=== PATIENT | male | born 1995 | race Caucasian/White ===

== ENCOUNTER 2017-07-03 23:07 | Emergency (ER) | payer SELFPAY ==
[~2017-07-03] VITALS: Ht 177.8 cm; Wt 97.7 kg
[2017-07-03 23:19] VITALS: TEMP 36.9; Ht 177.8 cm; Wt 97.7 kg
[2017-07-03] MEDS ORDERED: RANITIDINE HCL 150 MG TAB PO ONE (23:45)
[2017-07-04 00:31] VITALS: BP 125/73
[2017-07-04 00:34] VITALS: PULSE 79; O2SAT 98
[2017-07-04] MEDS ORDERED: PRED50TA PO (00:38)
--- NOTE | 2017-07-04 02:14 | EMERGENCY ROOM VISIT NOTE ---
History Report prepared by Luisa: Ines Rodriguez Under the Supervision of: Dr. Curly Deluna M.D. First contact with patient: 23:24 Chief Complaint: ALLERGIC REACTION Stated Complaint: SWOLLEN LIPS, CLOGGED SINUSES Nursing Triage Summary: "I just started using a carmex lip balm for the first time last night. I put it on multiple times over night and throughout the day today. Every time I put it on, it made my lips tingle. My nose has been stuffy for a week now. Around 1400 , I noticed that my lips were swollen." Patient denies any trouble breathing. Patient reports that his nose is swollen, left greater than right. Benadryl taken at 1500. History of Present Illness The patient is a 22 year old male who presents to the Emergency Room with complaints of a persistent allergic reaction secondary to applying Carmex to his lips one day ago. The patient states that he has been treating a sinus infection for the past couple of days, noting his lips have been dry and therefore has been applying Carmex to them. He reports that one night ago he kept waking up about every 45 minutes and applied the lip balm 4-5 times. This morning when the patient woke up, he noticed that his lips have been swollen, tingling, and have some "crusty" discharge. The patient states that his top lip has been more swollen than his bottom lip. He notes that he took Benadryl at 1500 today, noting it did not help relieve his symptoms but holding ice on his lips did help reduce the swelling for a little bit. He denies any tongue swelling or abnormalities to his voice. The patient reports that he has allergic reactions to hair dye, cats, and dogs. Pt denies LOC, headache, fevers, chills, diaphoresis, visual changes, neck pain , chest pain, breathing difficulties, nausea, vomiting, abdominal pain, back pain, weakness, lymphadenopathy, rash, or other complaints. Source of History: patient Onset: one day ago Position: lip (both) Quality: other (lip swelling) Timing: other (persistent) Review of Systems See HPI for pertinent positives and negatives. A total of ten systems were reviewed and were otherwise negative. Past Medical & Surgical Medical Problems: (1) Bronchitis (2) Epididymitis (3) Fever Family History Cancer Diabetes mellitus Heart disease Social History Smoking Status: Never Smoker Smokeless Tobacco Use: No Alcohol Use: none Drug Use: none Marital Status: single Housing Status: lives with family Occupation Status: student Current/Historical Medications Scheduled Prednisone (Prednisone), 50 MG PO DAILY Allergies Coded Allergies: No Known Allergies (Unverified , 07/03/17) Physical Exam Vital Signs Date Time Temp Pulse Resp B/P (MAP) Pulse Ox O2 Delivery O2 Flow Rate FiO2 07/04/17 00:34 79 15 98 07/04/17 00:31 125/73 07/04/17 00:19 77 16 98 07/04/17 00:15 75 07/04/17 00:04 70 17 97 07/04/17 00:01 135/72 07/03/17 23:49 80 21 97 07/03/17 23:34 93 13 97 07/03/17 23:29 82 18 143/78 98 07/03/17 23:19 36.9 84 20 146/104 96 Room Air 07/03/17 23:19 96 Room Air Physical Exam GENERAL: Awake, alert, well-appearing, in no distress HENT: Some swelling of left nasal mucosa and also both lips, some minor crusting noticed on inner aspect of upper and lower lips, but no blistering or open wounds. Normocephalic, atraumatic. Oropharynx unremarkable. EYES: Normal conjunctiva. Sclera non-icteric. NECK: Supple. No nuchal rigidity. FROM. No masses. RESPIRATORY: Clear to auscultation. No wheezes. CARDIAC: Normal rate. Normal rhythm. No murmurs. No rubs. Extremities warm and well perfused. Pulses equal. No JVD. GI: Soft, non-distended. No tenderness to palpation. No rebound or guarding. No masses. RECTAL: Deferred. MUSCULOSKELETAL: Atraumatic. Chest examination reveals no tenderness. The back is symmetrical on inspection without obvious abnormality. There is no CVA tenderness to palpation. No joint edema. LOWER EXTREMITIES: Calves are equal size bilaterally and non-tender. No edema. No discoloration. NEURO: Normal sensorium. No sensory or motor deficits noted. SKIN: No rash or jaundice noted. Medical Decision & Procedures Medications Administered Medications (Trade) Dose Ordered Sig/Ivon Route Start Time Stop Time Status Last Admin Dose Admin Prednisone (PredniSONE TAB) 60 mg NOW STAT PO 2/18/18 23:34 07/03/17 23:36 DC 07/03/17 23:48 60 MG Diphenhydramine HCl (Benadryl Cap) 50 mg NOW STAT PO 07/03/17 23:34 07/03/17 23:36 DC 07/03/17 23:48 50 MG Ranitidine HCl (zANTac TAB) 150 mg NOW ONCE PO 07/03/17 23:45 07/03/17 23:46 DC 07/03/17 23:48 150 MG ED Course 2325: The patient was evaluated in room B12. A complete history and physical exam was performed. 2334: Ordered Benadryl Cap 50mg PO and Prednisone 60mg PO. 2345: Ordered Ranitidine HCL 150mg PO. 0033: I reevaluated the patient, who was feeling significantly better. Discussed results and discharge instructions: He verbalized understanding and agreement. The patient is ready for discharge. Medical Decision Triage Nursing notes reviewed and agree them. The patient's history was concerning for possible allergic reaction. Differential diagnosis: Etiologies such as allergic reaction, anaphylaxis, urticaria, Lauren-Luis Eduardo syndrome, toxic epidermal necrolysis, erythema multiforme, cellulitis, as well as others were entertained. Physical examination: As above. ER treatment provided: Benadryl 50 mg PO Zantac 150 mg PO Prednisone 60mg PO On reassessment the patient was stable. Diagnostic interpretation by me: Deferred It appears the patient had an allergic reaction to the lip balm. The patient will refrain from using any of this in the future. Precautions discussed. By the evaluation outlined above emergent etiologies such as airway compromise, Lauren-Luis Eduardo syndrome, toxic epidermal necrolysis, erythema multiforme, cellulitis, as well as others were deemed relatively unlikely. The patient was informed about the findings as listed above. All questions were answered and he was pleased with the treatment. Return instructions were outlined and the patient was discharged in stable condition. Outpatient prescription management: prednisone Referral: The patient was referred back to primary care physician for follow-up in 2-3 days for a recheck of the current condition. The chart was completed utilizing [employer] voice recognition software. Grammatical errors, random word insertions, pronoun errors, and incomplete sentences are an occasional side effect of this system due to software limitations, ambient noise, and hardware issues. Any formal questions or concerns about the content, text, or information contained within the body of this dictation should be directly addressed to the physician for clarification. Medication Reconcilliation Current Medication List: was personally reviewed by me Blood Pressure Screening Patient's blood pressure: Normal blood pressure Blood pressure disposition: Did not require urgent referral Impression Primary Impression: Allergic reaction Scribe Attestation The scribe's documentation has been prepared under my direction and personally reviewed by me in its entirety. I confirm that the note above accurately reflects all work, treatment, procedures, and medical decision making performed by me. Departure Information Dispostion Home / Self-Care Prescriptions Prednisone (Prednisone) 50 Mg Tab 50 MG PO DAILY for 4 Days, #4 TAB Prov: Curly Deluna MD 07/04/17 Referrals No Doctor, Assigned (PCP) Forms HOME CARE DOCUMENTATION FORM, IMPORTANT VISIT INFORMATION Patient Instructions My [facility] Additional Instructions ALLERGIC REACTION INSTRUCTIONS: DO NOT drive, drink alcohol, operate machinery, or perform dangerous activities today. You were given medications in the ER that can affect your ability to safely function or operate a vehicle. Prednisone 50mg: Once daily until the prescription is finished. It is best to take this earlier in the day as some patients note occasional difficulty falling asleep when taken in the late evening. Diphenhydramine(Benadryl) 25mg: use 25 to 50 mg every six hours for swelling, itching, or hives. This medication is sedating and will cause drowsiness. Avoid alcohol, operating machinery or dangerous equipment, working on ladders or roofs, DRIVING, or situations where being under the influence may be dangerous. Zantac 75: Take two pills twice a day along with Benadryl as needed for swelling , itching, or hives. Most people know this for its affect on the stomach, but it also acts similar to, but less potent than Benadryl for allergic reactions. Both the Benadryl and the Zantac are available [id number]. Continue current medications. Return to the emergency department for worsening of your rash, swelling of your face, lips, tongue, or throat, difficulty breathing, vomiting, or as needed. Follow-up with a primary care physician next week for a recheck of your current condition.
== END 2017-07-04 00:54 | disposition home or self-care (01) ==
LOC: C.EDB 23:08
DX: T78.49XA Other allergy, initial encounter (principal); X58.XXXA Exposure to other specified factors, initial encounter; Z91.048 Other nonmedicinal substance allergy status; Z80.9 Family history of malignant neoplasm, unspecified; Z83.3 Family history of diabetes mellitus; Z82.49 Family history of ischemic heart disease and other diseases of the circulatory system